=== PATIENT | female | born 1960 | race Caucasian/White ===

== ENCOUNTER 2018-04-14 13:16 | Outpatient (CLI) | payer OTHER ==
--- NOTE | 2018-04-14 14:16 | RAD ---
TWO VIEWS KUB: Indication: Concern for renal stones. Comparison: CT of abdomen/pelvis, 08-30-17 FINDINGS: There is a mild amount of retained stool within the colon, particularly over the transverse colon melchor t limits evaluation of the renal shadows. No suspicious calcification is seen overlying the expected position of the kidneys nor in the expected region of the renal collecting system. There is a punctat e calcification seen overlying the lateral left psoas which may correspond to a small phlebolith seen in this region on the comparison CT evaluation. There is a small bone island within the right ileum. There is mild degenerative change of both SI joints. Bowel gas pattern is unobstructed. The lung bas es are clear. IMPRESSION: 1. No suspicious calcification seen overlying the renal collecting systems or renal shadows. 2. Mild amount of retained stool within the colon. POS: [facility]
[2018-04-14 14:28] LABS: Bilirubin Negative (Negative); Blood, Urine Negative (Negative); Clarity Slightly Cloudy (Clear); Glucose, Urine (Dipstick) Negative (Negative); Leukocyte Negative (Negative); Nitrite Negative (Negative); Protein, Urine (Dipstick) Negative (Neg-Trace); Specific Gravity, Urine 1.015 (1.005-1.030)
--- NOTE | 2018-04-14 14:49 | ULT ---
BILATERAL RENAL ULTRASOUND: Date: 04/14/18 COMPARISON: CT abdomen/pelvis dated 08/30/17. HISTORY: Renal stones. TECHNIQUE: Multiplanar Adame scale and color Doppler images were obtained in a bilateral renal ultrasound. FINDINGS: The kidneys are normal in echogenicity without hydronephrosis or shadowing calculi and measure 13.1 a nd 15.7 cm in length on the right and left, respectively. Limited visualization of the urinary bladde r is unremarkable. Both ureteral jets were seen. IMPRESSION: Normal renal ultrasound. POS: [facility]
== END 2018-04-14 13:17 | disposition home or self-care (01) ==
LOC: SCSULT 13:16
PROVIDERS: ATTEND Urology
DX: N39.46 Mixed incontinence (principal); N28.1 Cyst of kidney, acquired; N20.0 Calculus of kidney; R35.0 Frequency of micturition; R31.29 Other microscopic hematuria
CPT/HCPCS: 36415; 74018; 76770; 81003; 87086

== ENCOUNTER 2019-04-16 14:14 | Outpatient (CLI) | payer OTHER ==
[2019-04-16 14:40] LABS: Anion Gap 11 mmol/L (10-20); BUN (Urea Nitrogen) 14 mg/dL (9.8-20.1); Calc. Creatinine Clearance 0 mL/min (70-130); Calcium 9.5 mg/dL (7.8-10.44); Carbon Dioxide 29 mmol/L (22-29); Chloride 106 mmol/L (98-107); Estimated GFR-MDRD 85; Glucose 86 mg/dL (70-105); Potassium 3.5 mmol/L (3.5-5.1); Sodium 142 mmol/L (136-145)
--- NOTE | 2019-04-16 14:45 | RAD ---
EXAM: XR Abdomen 1 View/KUB PROVIDED CLINICAL HISTORY: Renal calculi, hyperdense renal cyst COMPARISON: 04/14/2020 FINDINGS: There is mild elevation right hemidiaphragm. Moderate amount of retained fecal material is again seen throughout the colon. Renal shadows are partially obscured bilaterally, but no definite suspicious calcifications are seen overlying the expected location of the renal collecting systems or ureters bi laterally. Degenerative changes are seen in the lower lumbar spine. IMPRESSION: 1. Evidence of constipation. 2. No suspicious calcifications are seen overlying the region of the expected location of the bilater al ureters or renal collecting systems.
--- NOTE | 2019-04-16 14:49 | ULT ---
Bilateral renal ultrasound CLINICAL INDICATION: Kidney stones. Follow-up evaluation. COMPARISON: 04/14/2018. FINDINGS: Right kidney: There is no evidence of a renal mass, renal calculus, or hydronephrosis. The right kidn ey measures 12.5 cm x 5.5 cm. Left kidney: There is no evidence of a renal mass, renal calculus, or hydronephrosis. The left kidney measures 14.2 cm x 5.[address] examination of the abdomen on 08/30/2017 demonstrated low-density subcentimeter lesions in ea ch kidney which are not visualized on sonographic evaluation. Urinary bladder: Normal in appearance. Prevoid urinary bladder volume is 260.7 mL. IMPRESSION: No evidence of hydronephrosis.
[2019-04-16 14:55] LABS: Bilirubin Negative (Negative); Blood, Urine Trace (Negative); Clarity Clear (Clear); Glucose, Urine (Dipstick) Negative (Negative); Leukocyte Negative (Negative); Nitrite Negative (Negative); Protein, Urine (Dipstick) Negative (Neg-Trace); Urobilinogen 0.2 mg/dL (0.2-1.0); pH, Urine 6.5 (5.0-9.0)
[2019-04-16 15:01] LABS: Bacteria/HPF None Seen HPF (None Seen); RBC/HPF 0-3 HPF (0-3); Squamous Epithelial 0-3 HPF (0-3); WBC/HPF 0-3 HPF (0-3)
== END 2019-04-16 14:15 ==
LOC: SCSULT 14:14
PROVIDERS: ATTEND Urology
DX: N20.0 Calculus of kidney (principal); N28.1 Cyst of kidney, acquired; N39.46 Mixed incontinence; D30.01 Benign neoplasm of right kidney; K59.00 Constipation, unspecified
CPT/HCPCS: 36415; 74018; 76770; 80048; 81003; 81015; 87086

== ENCOUNTER 2020-04-28 07:53 | Outpatient (CLI) | payer OTHER ==
--- NOTE | 2020-04-28 10:33 | ULT ---
BILATERAL RENAL ULTRASOUND: Date: 04/28/2020 HISTORY: Angiomyolipoma. COMPARISON: 08/30/2017 CT examination. FINDINGS: Real-time imaging of the right and left kidneys were performed. Kidneys are normal in size. Right kid bridger measures 12.11 cm and left kidney measures 13.5 cm in size. No cysts, mass, or obstruction apprec iated on this examination. Bladder region appears unremarkable. Bilateral ureteral jets are seen. Sma ll angiomyolipoma noted on the previous CT is not appreciated on this study. IMPRESSION: Unremarkable renal ultrasound. POS: [facility]
--- NOTE | 2020-04-28 10:54 | RAD ---
KUB 1 VIEW: Date: 04/28/2020 HISTORY: History of kidney stones. COMPARISON: 04/16/2019. FINDINGS: No evidence for abnormal opaque calculus. Moderate solid fecal material in the colon. IMPRESSION: No evidence for overt calculus. Stable from prior study. POS: [facility]
[2020-04-28 11:33] LABS: Bacteria/HPF None Seen HPF (None Seen); Bilirubin Negative (Negative); Blood, Urine Negative (Negative); Clarity Clear (Clear); Glucose, Urine (Dipstick) Normal (Negative); Ketone, Urine Negative (Negative); Leukocyte Negative Leu/uL (Negative); Nitrite Negative (Negative); Protein, Urine (Dipstick) Negative (Neg-Trace); RBC/HPF 0-3 HPF (0-3); Squamous Epithelial None Seen HPF (0-3); Urobilinogen Normal mg/dL (Less than 2); WBC/HPF 0-3 HPF (0-3); pH, Urine 5.5 (5.0-9.0)
[2020-04-28 11:44] LABS: Urine Culture Reflex No No
== END 2020-04-28 07:54 | disposition home or self-care (01) ==
LOC: SCSULT 07:53
PROVIDERS: ATTEND Urology
DX: N20.0 Calculus of kidney (principal); N28.1 Cyst of kidney, acquired; D17.71 Benign lipomatous neoplasm of kidney; R31.29 Other microscopic hematuria; N39.46 Mixed incontinence
CPT/HCPCS: 74018; 76770; 81001